=== PATIENT | male | born 1950 | race Caucasian/White ===

== ENCOUNTER 2022-11-02 14:40 | Emergency (ER) | payer OTHER ==
[2022-11-02 14:58] VITALS: BP 118/75; PULSE 94; RESP 20; TEMP 98.7; BMI 24.3
== END 2022-11-02 18:33 ==
LOC: JER 14:40
DX: F41.8 Other specified anxiety disorders (principal)
CPT/HCPCS: 99282-25

== ENCOUNTER 2023-10-08 03:45 | Emergency (ER) | payer OTHER ==
[2023-10-08 03:55] VITALS: RESP 18; TEMP 98.5; BMI 25.7
[2023-10-08] MEDS ORDERED: KETOROLAC TROMETHAMINE 15 MG/ML VIAL ONE (04:50)
[2023-10-08] MEDS: KETOROLAC TROMETHAMINE 15 MG/ML VIAL IVPUSH ONE (04:53)
[2023-10-08] MEDS ORDERED: metroNIDAZOLE 250 MG TABLET ONE (04:56)
[2023-10-08] MEDS: metroNIDAZOLE 250 MG TABLET PO ONE (04:58)
[2023-10-08 05:44] LABS: BASO % 0.5 % (0-2.0); EOS % 3.4 % (0-4.5); HEMATOCRIT 48.3 % (35.4-49); HEMOGLOBIN 16.4 GM/dL (11.7-16.9); LYMPH % 6.7 % (8-40); MCH 30.9 pg (25.7-33.7); MEAN CELL VOLUME 90.9 fl (80-96); MEAN PLT VOLUME 8.7 fl (7.5-11.1); MONO % 11.1 % (3.8-10.2); NEUT % 78.3 % (42.8-82.8); PLATELET COUNT 305 10^3/uL (134-434); RBC 5.31 M/mm3 (4.00-5.60); RDW 13.2 % (11.9-15.9); WHITE BLOOD COUNT 17.4 K/mm3 (4.0-10.0)
[2023-10-08 05:47] LABS: POTASSIUM 3.9 mmol/L (3.5-5.1)
[2023-10-08 05:49] LABS: CALCIUM 9.6 mg/dL (8.5-10.1)
[2023-10-08 05:50] LABS: ALBUMIN 4.6 g/dl (3.4-5.0); BLOOD UREA NITROGEN 13.8 mg/dL (7-18)
[2023-10-08 05:53] LABS: CREATININE 1.1 mg/dL (0.55-1.3)
[2023-10-08 05:55] LABS: BILIRUBIN,TOTAL 0.8 mg/dL (0.2-1); TOT PROT 7.6 g/dl (6.4-8.2)
[2023-10-08] MEDS ORDERED: morphine SULFATE 4 MG/ML VIAL ONE (07:24)
[2023-10-08] MEDS ORDERED: CLINDAMYCIN 600MG PREMIX IVPB 600 MG/50 ML BAG IVPB ONE (07:24)
[2023-10-08] MEDS: morphine CARPU-JECT 4 MG/1 ML DISP.SYRIN IVPUSH ONE (07:36)
[2023-10-08] MEDS: CLINDAMYCIN 600MG PREMIX IVPB 600 MG/50 ML BAG IVPB ONE (07:36)
[2023-10-08] MEDS ORDERED: HYDROmorphone HCL CARPU-JECT 2 MG/1 ML DISP.SYRIN ONE (10:28)
[2023-10-08] MEDS: HYDROmorphone HCl 2 MG/ML VIAL IVPUSH ONE (10:34)
[2023-10-08 10:35] VITALS: BP 128/83
[2023-10-08 11:36] VITALS: PULSE 80
== END 2023-10-08 12:00 | disposition short-term general hospital (02) ==
LOC: JER 03:45
PROC: 3E03329 Introduction of Other Anti-infective into Peripheral Vein, Percutaneous Approach (ICD-10-PCS; principal; 2023-10-08)
PROC: 3E033NZ Introduction of Analgesics, Hypnotics, Sedatives into Peripheral Vein, Percutaneous Approach (ICD-10-PCS; 2023-10-08)
PROC: 3E0333Z Introduction of Anti-inflammatory into Peripheral Vein, Percutaneous Approach (ICD-10-PCS; 2023-10-08)
PROC: 3E033NZ Introduction of Analgesics, Hypnotics, Sedatives into Peripheral Vein, Percutaneous Approach (ICD-10-PCS; 2023-10-08)
DX: L08.9 Local infection of the skin and subcutaneous tissue, unspecified (principal); R22.0 Localized swelling, mass and lump, head; K08.89 Other specified disorders of teeth and supporting structures; R51.9 Headache, unspecified
CPT/HCPCS: 36415; 70487-TC; 80053; 83605; 85025; 99285-25; Q9967

== ENCOUNTER 2023-11-22 14:47 | Emergency (ER) | payer OTHER ==
[2023-11-22 15:11] VITALS: BP 136/92; PULSE 78; RESP 16; TEMP 99; BMI 25.0
[2023-11-22] MEDS ORDERED: FAMOTIDINE 20 MG/50 ML IVPB 20 MG/50 ML MG IVPB ONE (16:52)
[2023-11-22] MEDS ORDERED: ACETAMINOPHEN INJECTION 100 ML IVPB ONE (16:52)
[2023-11-22] MEDS: FAMOTIDINE 20 MG/50 ML IVPB 20 MG/50 ML MG IVPB ONE (16:58)
[2023-11-22] MEDS: ACETAMINOPHEN 1000 MG/100 ML BAG IVPB ONE (16:58)
[2023-11-22 17:14] LABS: BASO % 0.5 % (0-2.0); EOS % 4.9 % (0-4.5); HEMATOCRIT 46.5 % (35.4-49); HEMOGLOBIN 15.8 GM/dL (11.7-16.9); LYMPH % 15.2 % (8-40); MEAN CELL VOLUME 91.1 fl (80-96); MEAN PLT VOLUME 8.3 fl (7.5-11.1); MONO % 12.6 % (3.8-10.2); NEUT % 66.8 % (42.8-82.8); PLATELET COUNT 281 10^3/uL (134-434); RBC 5.11 M/mm3 (4.00-5.60); RDW 13.8 % (11.9-15.9); WHITE BLOOD COUNT 10.4 K/mm3 (4.0-10.0)
[2023-11-22 17:23] LABS: POTASSIUM 4.6 mmol/L (3.5-5.1)
[2023-11-22 17:25] LABS: CALCIUM 9.5 mg/dL (8.5-10.1)
[2023-11-22 17:26] LABS: BLOOD UREA NITROGEN 15.7 mg/dL (7-18)
[2023-11-22 17:30] LABS: BILIRUBIN,TOTAL 0.5 mg/dL (0.2-1)
[2023-11-22] MEDS ORDERED: KETOROLAC TROMETHAMINE 15 MG/ML VIAL ONE (18:30)
[2023-11-22] MEDS: KETOROLAC TROMETHAMINE 15 MG/ML VIAL IVPUSH ONE (18:34)
[2023-11-22 19:43] LABS: EPI CELLS 4 /uL (0-25.1); HYALINE CASTS 0 /uL (0-3.1); PH,URINE 6.5 (5.0-8.0); URINE APPEARANCE CLEAR; URINE BACTERIA 2 /uL (0-1359); URINE BILIRUBIN NEGATIVE (NEGATIVE); URINE COLOR YELLOW; URINE GLUCOSE (UA) NEGATIVE (NEGATIVE); URINE KETONE NEGATIVE (NEGATIVE); URINE LEUK ESTERASE TRACE (NEGATIVE); URINE NITRITE NEGATIVE (NEGATIVE); URINE PROTEIN NEGATIVE (NEGATIVE); URINE RBC 10 /uL (0-23.9); URINE UROBILINOGEN 0.2 mg/dL (0.2-1.0); URINE WBC 49 /uL (0-25.8)
[2023-11-22] MEDS ORDERED: CEPHALEXIN MONOHYDRATE 500 MG CAPSULE (UD) ONE (19:56)
[2023-11-22] MEDS: CEPHALEXIN MONOHYDRATE 500 MG CAPSULE (UD) PO ONE (19:59)
== END 2023-11-22 21:26 | disposition home or self-care (01) ==
LOC: JER 14:47
PROC: 3E033NZ Introduction of Analgesics, Hypnotics, Sedatives into Peripheral Vein, Percutaneous Approach (ICD-10-PCS; principal; 2023-11-22)
PROC: 3E033NZ Introduction of Analgesics, Hypnotics, Sedatives into Peripheral Vein, Percutaneous Approach (ICD-10-PCS; 2023-11-22)
PROC: 3E0333Z Introduction of Anti-inflammatory into Peripheral Vein, Percutaneous Approach (ICD-10-PCS; 2023-11-22)
DX: R10.32 Left lower quadrant pain (principal); K59.00 Constipation, unspecified; R10.12 Left upper quadrant pain; R10.13 Epigastric pain
CPT/HCPCS: 36415; 80053; 81003; 83690; 85025; 85730; 86850; 86900; 86901; 99284-25; J0131